=== PATIENT | female | born 1985 | race Caucasian/White ===

== ENCOUNTER 2017-03-01 00:40 | Inpatient (IN) | payer MEDICAID ==
[~2017-03-01] VITALS: Ht 157.5 cm; Wt 112.7 kg
[2017-03-01 00:55] VITALS: BP 143/83
[2017-03-01 01:27] LABS: HEMOGLOBIN 12.7 g/dL (11.7-16.4)
[2017-03-01 01:39] LABS: ASPARTATE AMINO TRANSFERASE 12 U/L (15-37); BLOOD UREA NITROGEN 9 mg/dL (7-18)
[2017-03-01] MEDS: D5%-LACTATED RINGERS 1,000 ML IV SCH ×3 (01:39→17:39)
[2017-03-01] MEDS ORDERED: OXYTOCIN 30U/ 0.9% NaCL 500ML 500 ML IV ONE (01:39)
[2017-03-01] MEDS ORDERED: LIDOCAINE 1%, 20ML ONE (01:47)
[2017-03-01] MEDS ORDERED: MISOPROSTOL 200 MCG TABLET ONE (01:47)
[2017-03-01] MEDS ORDERED: OXYTOCIN 30U/ 0.9% NaCL 500ML 500 ML ONE (01:48)
[2017-03-01] MEDS: LACTATED RINGERS 1,000 ML IV SCH ×13 (01:50→23:27)
[2017-03-01] MEDS ORDERED: METOCLOPRAMIDE 5 MG/ML, 2ML IVPush PRN (02:00)
[2017-03-01] MEDS ORDERED: SODIUM CITRATE/CITRIC ACID 30 ML UDC PO PRN (02:00)
[2017-03-01] MEDS ORDERED: FENTANYL PF 100 MCG/2ML IVPush PRN (02:00)
[2017-03-01] MEDS ORDERED: ONDANSETRON 2MG/ML, 2ML IVPush PRN (02:00)
[2017-03-01] MEDS ORDERED: CEFAZOLIN PMX 2GM/50ML 50 ML IVPB ONE (02:00)
[2017-03-01] MEDS ORDERED: CALCIUM CARBONATE 500 MG TAB.CHEW PO PRN ×2 (02:00→07:30)
[2017-03-01] MEDS ORDERED: FENTANYL PF 100 MCG/2ML IV PRN (02:00)
[2017-03-01] MEDS ORDERED: LACTATED RINGERS 1,000 ML IVBOLUS PRN ×2 (02:00→04:00)
[2017-03-01] MEDS ORDERED: FENTANYL PF 100 MCG/2ML ONE ×3 (02:03→07:51)
[2017-03-01] MEDS ORDERED: ONDANSETRON 2MG/ML, 2ML ONE ×2 (02:03→06:18)
[2017-03-01] MEDS ORDERED: FENTANYL/BUPIV./NS/PF 250 ML EPIDCONT ONE (03:00)
[2017-03-01] MEDS ORDERED: LIDOCAINE/PF 1.5%-EPI 1:200K, 30ML ONE (03:00)
[2017-03-01] MEDS ORDERED: TERBUTALINE 1 MG/ML, 1ML ONE (03:25)
[2017-03-01] MEDS: EPHEDRINE 50 MG/ML, 1ML IVPush PRN ×2 (03:45→04:12)
[2017-03-01] MEDS ORDERED: FENTANYL/BUPIV./NS/PF 250 ML EPIDCONT SCH (03:53)
[2017-03-01] MEDS ORDERED: NALOXONE 0.4 MG/ML, 1ML IVPush PRN (04:00)
[2017-03-01] MEDS ORDERED: EPHEDRINE 50 MG/ML, 1ML IVPush PRN (04:00)
[2017-03-01] MEDS ORDERED: TERBUTALINE 1 MG/ML, 1ML IVPush PRN (04:30)
[2017-03-01] MEDS ORDERED: NEWBORN KIT ONE (05:38)
[2017-03-01] MEDS ORDERED: LIDOCAINE/MPF 2%-EPI 1:200K, 20 ML ONE (06:07)
[2017-03-01] MEDS ORDERED: METOCLOPRAMIDE 5 MG/ML, 2ML ONE (06:18)
[2017-03-01] MEDS ORDERED: OXYTOCIN 10 UNITS/ML, 1ML ONE (06:18)
[2017-03-01] MEDS ORDERED: CEFAZOLIN 1,000 MG ONE (06:18)
[2017-03-01] MEDS ORDERED: KETOROLAC 30 MG/1 ML ONE (06:18)
[2017-03-01] MEDS ORDERED: LORA10TA75 PO (07:21)
[2017-03-01] MEDS: OXYTOCIN 30U/ 0.9% NaCL 500ML 500 ML IV SCH ×4 (07:27→17:27)
[2017-03-01] MEDS ORDERED: MEASLES,MUMPS&RUBELLA VACC/PF 0.5 ML SQ-VACC PRN (07:30)
[2017-03-01] MEDS ORDERED: BISACODYL 10 MG SUPP PR PRN (07:30)
[2017-03-01] MEDS ORDERED: DIPH,PERTUSS(ACELL),TET VAC/PF NC IM-VACC PRN (07:30)
[2017-03-01] MEDS ORDERED: HYDROcodone/APAP 5/325 TABLET PO PRN (07:30)
[2017-03-01] MEDS ORDERED: ACETAMINOPHEN 325 MG TABLET PO PRN ×2 (07:30)
[2017-03-01] MEDS ORDERED: ONDANSETRON 2MG/ML, 2ML IV PRN (07:30)
[2017-03-01] MEDS: KETOROLAC 30 MG/1 ML IV SCH ×3 (07:30→20:27)
[2017-03-01] MEDS ORDERED: METOCLOPRAMIDE 5 MG/ML, 2ML IV PRN (07:30)
[2017-03-01] MEDS ORDERED: CARBOPROST TROMETHAMINE 250 MCG/ML, 1ML IM PRN (07:30)
[2017-03-01] MEDS ORDERED: MISOPROSTOL 200 MCG TABLET PR PRN (07:30)
[2017-03-01] MEDS ORDERED: SIMETHICONE 80 MG CHEW TAB PO PRN (07:30)
[2017-03-01] MEDS ORDERED: GLYCERIN ADULT SUPP PR PRN (07:30)
[2017-03-01] MEDS ORDERED: OXYcodone 5 MG/5 ML ORAL.SOL UDC ONE (07:51)
[2017-03-01] MEDS ORDERED: HYDROcodone/APAP 5/325 TABLET ONE (08:12)
[2017-03-01] MEDS: HYDROcodone/APAP 5/325 TABLET PO PRN ×4 (08:17→21:32)
[2017-03-01] MEDS: PRENATAL VIT/IRON/FA 1 EACH TABLET PO SCH (09:00)
[2017-03-01 10:00] VITALS: BP 113/59
[2017-03-01] MEDS: CEFAZOLIN PMX 1GM/50ML 50 ML IVPB SCH ×2 (10:00→18:00)
[2017-03-01 12:40] VITALS: BP 102/56
[2017-03-01 15:41] LABS: HEMOGLOBIN 11.6 g/dL (11.7-16.4)
[2017-03-01 16:10] VITALS: BP 114/63
[2017-03-01] MEDS: DOCUSATE 100 MG CAPSULE PO PRN (20:27)
[2017-03-01 20:30] VITALS: BP 103/67
[2017-03-01] MEDS ORDERED: HYDROcodone/APAP 10/325 MG TABLET PO PRN (23:00)
[2017-03-02 01:20] VITALS: BP 110/63
[2017-03-02] MEDS: HYDROcodone/APAP 10/325 MG TABLET PO PRN ×4 (01:31→21:11)
[2017-03-02] MEDS: KETOROLAC 30 MG/1 ML IV SCH (02:45)
[2017-03-02] MEDS: LACTATED RINGERS 1,000 ML IV SCH ×4 (03:27→15:27)
[2017-03-02] MEDS: OXYTOCIN 30U/ 0.9% NaCL 500ML 500 ML IV SCH ×2 (03:27→13:27)
[2017-03-02 05:30] VITALS: BP 111/70
[2017-03-02 06:05] VITALS: BP 114/70
[2017-03-02] MEDS: DOCUSATE 100 MG CAPSULE PO PRN ×2 (08:42→21:11)
[2017-03-02] MEDS: IBUPROFEN 600 MG TABLET PO PRN ×3 (08:42→23:03)
[2017-03-02] MEDS: PRENATAL VIT/IRON/FA 1 EACH TABLET PO SCH (08:42)
[2017-03-02 20:00] VITALS: BP 132/82
[2017-03-03 01:15] VITALS: BP 121/73
[2017-03-03] MEDS: HYDROcodone/APAP 10/325 MG TABLET PO PRN ×2 (01:24→06:24)
[2017-03-03] MEDS ORDERED: HYDR-3240 PO (03:44)
[2017-03-03] MEDS ORDERED: IBUP-1222 PO (03:52)
[2017-03-03] MEDS ORDERED: DOCU-30 PO (03:54)
[2017-03-03] MEDS ORDERED: toradol (03:59)
[2017-03-03] MEDS: IBUPROFEN 600 MG TABLET PO PRN (05:05)
[2017-03-03 07:55] VITALS: BP 122/79
[2017-03-03] MEDS: DOCUSATE 100 MG CAPSULE PO PRN (10:39)
[2017-03-03] MEDS: PRENATAL VIT/IRON/FA 1 EACH TABLET PO SCH (10:39)
== END 2017-03-03 11:25 | disposition home or self-care (01) | DRG 765 ==
LOC: LDOP 00:40 → LDIP 01:43 → 2NW 09:25
PROVIDERS: ADMIT Specialist; ATTEND Specialist
PROC: 10D00Z1 Extraction of Products of Conception, Low, Open Approach (ICD-10-PCS; principal; 2017-03-01)
PROC: 0T9B70Z Drainage of Bladder with Drainage Device, Via Natural or Artificial Opening (ICD-10-PCS; 2017-03-01)
DX: O99.824 Streptococcus B carrier state complicating childbirth (principal); Z68.42 Body mass index [BMI] 45.0-49.9, adult; O99.214 Obesity complicating childbirth; Z3A.40 40 weeks gestation of pregnancy; Z37.0 Single live birth; O77.0 Labor and delivery complicated by meconium in amniotic fluid; O76 Abnormality in fetal heart rate and rhythm complicating labor and delivery; O69.81X0 Labor and delivery complicated by cord around neck, without compression, not applicable or unspecified; E66.9 Obesity, unspecified; E28.2 Polycystic ovarian syndrome; O48.0 Post-term pregnancy; J30.2 Other seasonal allergic rhinitis; Z90.49 Acquired absence of other specified parts of digestive tract; Z88.0 Allergy status to penicillin; Z88.1 Allergy status to other antibiotic agents; O62.1 Secondary uterine inertia; O14.94 Unspecified pre-eclampsia, complicating childbirth; O34.211 Maternal care for low transverse scar from previous cesarean delivery
CPT/HCPCS: 36415; 80053; 81001; 82248; 82803; 84550; 85025; 86850; 86900; 87086; 90715; J0690; J1885; J2405; J3010; J2590; J2765; J3105; J7120

== ENCOUNTER 2019-02-27 11:18 | Emergency (ER) | payer MEDICAID ==
[~2019-02-27] VITALS: Ht 160 cm; Wt 93.5 kg
[~2019-02-27 11:18] MED LIST: DOCU-131 PO; HYDR-3240 PO; IBUP-1222 PO; LORA10TA75 PO; toradol
[2019-02-27 11:28] VITALS: BP 142/84
--- NOTE | 2019-02-27 11:55 | NUR ---
RECEIVED REPORT FROM HAZEL GRULLON. CARE ASSUMED. PT RESTING COMFORTABLY, DENIES ANY PAIN AND NEED TO USE RESTROOM. A&OX4. SON AT BEDSIDE. CALL LIGHT IN REACH. FALL PREACAUTIONS IN PLACE. AWAITING XRAY.
[2019-02-27] MEDS ORDERED: CETI10CA PO (12:27)
--- NOTE | 2019-02-27 12:46 | NUR ---
PT IN RAD
== END 2019-02-27 13:09 | disposition home or self-care (01) ==
LOC: ED 13:05
DX: J06.9 Acute upper respiratory infection, unspecified (principal)
CPT/HCPCS: 71046; 99283

== ENCOUNTER 2020-10-11 08:07 | Emergency (ER) | payer MEDICAID ==
[~2020-10-11] VITALS: Ht 160 cm; Wt 93.6 kg
[~2020-10-11 08:07] MED LIST changes: +CETI10CA PO
[2020-10-11] MEDS ORDERED: KETOROLAC 30 MG/1 ML IM ONE (09:00)
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
[2020-10-11] MEDS ORDERED: CYAN500011 PO (09:07)
[2020-10-11] MEDS ORDERED: CHOL500015 PO (09:09)
[2020-10-11] MEDS ORDERED: ASCO100018 PO (09:11)
[2020-10-11] MEDS ORDERED: VITA15LO2 PO (09:11)
[2020-10-11 09:13] LABS: BASOPHILS % (AUTO) 0 % (0-1); EOSINOPHILS % (AUTO) 1 % (1-7); LYMPHOCYTES % (AUTO) 22 % (22-44); MD NO; MEAN CORPUSCULAR HEMOGLOBIN 30.4 pg (27.0-34.8); MEAN CORPUSCULAR HGB CONC 34.1 g/dL (32.4-35.8); MEAN PLATELET VOLUME 9.9 fL (7.4-10.4); MONOCYTES % (AUTO) 5 % (2-9); NEUTROPHILS % (AUTO) 72 % (42-75); PLATELET COUNT 264 x10^3/uL (130-400); RED BLOOD COUNT 4.72 x10^6/uL (3.82-5.3); RED CELL DISTRIBUTION WIDTH 13.3 % (9.6-15.2)
[2020-10-11 09:19] LABS: ALANINE AMINOTRANSFERASE 20 U/L (12-78); ALBUMIN 3.4 g/dL (3.4-5.0); ANION GAP 6 mmol/L (5-15); CALCIUM 9.1 mg/dL (8.5-10.1); CHLORIDE 109 mmol/L (98-107); CREATININE 0.89 mg/dL (0.55-1.02)
--- NOTE | 2020-10-11 09:20 | NUR ---
minicath done using sterile technique. theraworks wipes used per protocol well tolerated by pt
[2020-10-11 09:21] LABS: ALKALINE PHOSPHATASE 66 U/L (45-117); BILIRUBIN,TOTAL 0.2 mg/dL (0.2-1.0); TOTAL PROTEIN 7.4 g/dL (6.4-8.2)
[2020-10-11 09:35] LABS: MICROSCOPIC INDICATED
[2020-10-11 10:01] VITALS: BP 131/80
== END 2020-10-11 10:10 | disposition home or self-care (01) ==
LOC: ED 09:44
DX: N63.10 Unspecified lump in the right breast, unspecified quadrant (principal); R07.89 Other chest pain; R10.11 Right upper quadrant pain; R00.0 Tachycardia, unspecified; E66.9 Obesity, unspecified; Z90.49 Acquired absence of other specified parts of digestive tract; Z90.89 Acquired absence of other organs; Z88.0 Allergy status to penicillin
CPT/HCPCS: 36415; 71045; 80053; 81001; 83690; 85025; 85379; 87086; 93005; 99285

== ENCOUNTER 2021-04-09 09:57 | Emergency (ER) | payer MEDICAID ==
[~2021-04-09] VITALS: Ht 160 cm; Wt 103.0 kg
[~2021-04-09 09:57] MED LIST changes: +ASCO100018 PO; +CHOL500015 PO; +CYAN500011 PO; +HYDR-2214 PO; -HYDR-3240 PO; +VITA15LO2 PO
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
--- NOTE | 2021-04-09 12:59 | NUR ---
ERP AT BEDSIDE FOR EVAL
--- NOTE | 2021-04-09 13:24 | NUR ---
BREAK RN: PT IN NO ACUTE DISTRESS. PT AMB TO BR, GAIT STEADY. WAITING FOR ORDERS.
[2021-04-09 13:27] VITALS: BP 131/78
[2021-04-09] MEDS ORDERED: NEOSPORIN OINT. PKT 1 PACKET ONE (13:31)
--- NOTE | 2021-04-09 13:54 | NUR ---
NO IV TO DC, REVIEWED DC INSTRUCTIONS WITH PT. UNDERSTANDING VERBALIZED. PT LEFT AMB, GAIT STEADY.
== END 2021-04-09 13:56 | disposition home or self-care (01) ==
LOC: ED 10:52
DX: T81.30XD Disruption of wound, unspecified, subsequent encounter (principal); R00.0 Tachycardia, unspecified
CPT/HCPCS: 99281